=== PATIENT | male | born 1955 | race Caucasian/White ===

== ENCOUNTER 2021-10-24 08:54 | Emergency (ER) | payer MEDICARE, OTHER, SELFPAY ==
[2021-10-24] VITALS (11 sets, daily range): BP systolic 124–146; BP diastolic 66–77; PULSE 77–85; RESP 18–24; TEMP 35.8; O2SAT 93–96; BMI 34.4
--- NOTE | 2021-10-24 09:15 | ED_ITS ---
HPI - General Adult General Chief complaint: Fall Stated complaint: dizzy fell 3x this morning cant move Time Seen by Provider: 10/24/21 09:09 Source: patient Mode of arrival: Ambulatory Limitations: no limitations History of Present Illness HPI narrative: Patient is a 66-year-old male who came to the emergency department this morning for evaluation of an episode of dizziness and falling. Over the past 10 days he has not felt well. They recently have made some changes to his diabetic medication. He states that the new medications were not treating his blood sugars appropriately so he self decided to go back on his old medications. That was 3 days ago. He states that this morning he woke up to go use the restroom. When he stood up he felt very unsteady on his feet. He states that everything went black and he fell to the ground. Sustained no injuries from the fall. He states that it feels better when his eyes are closed. He does not completely describe a vertigo/room spinning sensation no ever feels like things are just shaking. No sinus congestion. No sore throat. No fullness in his ears. No palpitations. No shortness of breath. No chest pain. No abdominal pain. No nausea vomiting. No numbness or tingling in upper lower extremities. Related Data Home Medications Medication Instructions Recorded Confirmed aspirin 81 mg tablet,delayed 81 mg PO QDAY #0 05/12/16 release atorvastatin 40 mg tablet (Lipitor) 40 mg PO HS #0 05/12/16 losartan 100 mg tablet 100 mg PO QDAY #0 05/12/16 Previous Rx's Medication Instructions Recorded levofloxacin 750 mg tablet 750 mg PO DAILY 5 Days #5 tab 10/24/21 Allergies Allergy/AdvReac Type Severity Reaction Status Date / Time No Known Allergies Allergy Uncoded 09/21/17 12:36 Review of Systems Constitutional Constitutional: Denies fever(s) and Denies headache(s) Eyes Eyes: Denies change in vision ENT Ears, Nose, Mouth, and Throat: Denies headache(s) Cardiovascular Cardiovascular: Reports as per HPI and Reports system reviewed and no additional complaints, except as documented Respiratory Respiratory: Reports as per HPI and Reports system reviewed and no additional complaints, except as documented Gastrointestinal Gastrointestinal: Reports system reviewed and no additional complaints, except as documented Musculoskeletal Musculoskeletal: Reports system reviewed and no additional complaints, except as documented Integumentary/Breasts Skin/Breast: Reports system reviewed and no additional complaints, except as documented Neurologic Neurologic: Denies headache(s) Hematologic/Lymphatic On Anticoagulants: No Patient History Medical History Diabetes Social History marital status: lives independently: Yes Smoking Status: Unknown if ever smoked Exam Initial Vital Signs Initial Vital Signs: Vital Signs Temperature 96.4 F L 10/24/21 09:13 Pulse Rate 85 10/24/21 09:13 Respiratory Rate 18 10/24/21 09:13 Blood Pressure 133/75 10/24/21 09:13 Pulse Oximetry 94 10/24/21 09:13 Const General: cooperative, healthy appearing and comfortable HENMT Head: normal to inspection and normocephalic Resp Effort & Inspection: normal respiratory effort Auscultation: clear to auscultation bilaterally Cardio Rate: regular rate Rhythm: regular rhythm GI Inspection: normal to inspection Skin General: no rashes or lesions noted Neuro General: patient alert, patient awake, patient oriented x3 and moves all extremities Cranial Nerves: CN's II-XI intact bilaterally Cognition: normal cognition Speech: speech normal Gait: normal gait Sensory Exam: no sensory deficits noted Extrem General: normal to inspection and capillary refill normal Psych Appearance: grossly normal and well kempt Course Orders Ordered: ED Orders 10/24/21 09:09 EKG-12 Lead Stat 10/24/21 09:16 XR chest 1V Stat 10/24/21 09:20 Complete Blood Count AUTO DIFF Stat Comprehensive Metabolic Panel Stat Lipase Stat 10/24/21 10:43 COVID19 -Nasal RAPID/Pre-Proc Stat 10/24/21 11:24 Urine Culture Stat Urine Microscopic Stat Discontinued Medications Azithromycin (Azithromycin 250 Mg Tablet) 500 mg PO NOW ONE Stop: 10/24/21 10:17 Last Admin: 10/24/21 10:34 Dose: 500 mg Documented by: MAX Sodium Chloride (Normal Saline 0.9%) 1,000 mls @ 500 mls/hr IV BOLUS ONE Stop: 10/24/21 11:08 Last Infusion: 10/24/21 11:56 Dose: 0 mls/hr Documented by: Admin: 10/24/21 09:30 Dose: 500 mls/hr Documented by: MAX Meclizine HCl (Meclizine Hcl 12.5 Mg Tablet) 25 mg PO NOW ONE Stop: 10/24/21 10:17 Last Admin: 10/24/21 10:34 Dose: 25 mg Documented by: MAX Vital Signs Vital signs: Vital Signs - 8 hr 10/24/21 09:30 10/24/21 10:00 10/24/21 10:30 Pulse Rate 80 77 81 Respiratory Rate 20 21 23 Blood Pressure 146/74 H 134/66 135/68 Pulse Oximetry 94 94 93 10/24/21 11:00 10/24/21 11:30 10/24/21 12:00 Pulse Rate 82 80 79 Respiratory Rate 22 22 24 Blood Pressure 143/77 H 124/69 132/69 Pulse Oximetry 93 96 95 10/24/21 12:30 10/24/21 13:00 Pulse Rate 82 80 Respiratory Rate 24 22 Blood Pressure 136/75 135/71 Pulse Oximetry 95 96 Medical Decision Making Lab Data Lab results reviewed: Yes I reviewed the patient's lab results. Result diagrams: 10/24/21 09:20 10/24/21 09:20 Labs: Lab Results 10/24/21 10/24/21 10/24/21 Range/Units 09:20 09:20 10:43 WBC 20.2 H (4.5-11.0) X10^3/uL RBC 4.44 L (4.5-5.9) X10^6/uL Hgb 13.3 L (13.5-17.5) g/dL Hct 37.4 L (41-53) % MCV 84.1 (80-100) fL MCH 29.9 (26-34) PG MCHC 35.6 (30-36) % RDW 13.9 (11.6-14.8) % Plt Count 261 (150-400) X10^3/uL Neut % (Auto) Not Reportable Lymph % (Auto) Not Reportable [place] % (Auto) Not Reportable Eos % (Auto) Not Reportable Baso % (Auto) Not Reportable Lymph # (Auto) Not Reportable [place] # (Auto) Not Reportable Baso # (Auto) Not Reportable Total Counted 100 Seg Neutrophils % 79.0 H (38-70) % Band Neutrophils % 7.0 (3-7) % Lymphocytes % (Manual) 5.0 L (25-45) % Monocytes % (Manual) 9.0 (2-11) % Neutrophils # (Manual) 08008 H (9221-3627) /uL RBC Morphology Normal morphology Sodium 135 L (137-145) mmol/L Potassium 3.3 L (3.4-5.1) mmol/L Chloride 100 (98-107) mmol/L Carbon Dioxide 27 (22-32) mmol/L BUN 24 H (9-20) mg/dL Creatinine 1.17 (0.66-1.25) mg/dL Estimated GFR > 60 (>60) mL/min BUN/Creatinine Ratio 20.5 (6-22) Glucose 398 H (80-110) mg/dL Calcium 8.4 (8.4-10.2) mg/dL Total Bilirubin 1.6 H (0.2-1.3) mg/dL AST 236 H (17-59) IU/L ALT 397 H (<50) IU/L Alkaline Phosphatase 129 H (38-126) U/L Total Protein 7.8 (6.3-8.2) g/dL Albumin 3.8 (3.5-5.0) g/dL Globulin 4.0 (1.7-4.1) g/dL Albumin/Globulin Ratio 1.0 (1.0-2.8) Lipase 90 (23-300) U/L Urine RBC (0-5/HPF) Urine WBC (0-5/HPF) Urine Bacteria (None) Ur Culture Indicated? SARS-CoV-2 (PCR) Negative (Negative) 10/24/21 Range/Units 11:24 WBC (4.5-11.0) X10^3/uL RBC (4.5-5.9) X10^6/uL Hgb (13.5-17.5) g/dL Hct (41-53) % MCV (80-100) fL MCH (26-34) PG MCHC (30-36) % RDW (11.6-14.8) % Plt Count (150-400) X10^3/uL Neut % (Auto) Lymph % (Auto) [place] % (Auto) Eos % (Auto) Baso % (Auto) Lymph # (Auto) [place] # (Auto) Baso # (Auto) Total Counted Seg Neutrophils % (38-70) % Band Neutrophils % (3-7) % Lymphocytes % (Manual) (25-45) % Monocytes % (Manual) (2-11) % Neutrophils # (Manual) (7088-4495) /uL RBC Morphology Sodium (137-145) mmol/L Potassium (3.4-5.1) mmol/L Chloride (98-107) mmol/L Carbon Dioxide (22-32) mmol/L BUN (9-20) mg/dL Creatinine (0.66-1.25) mg/dL Estimated GFR (>60) mL/min BUN/Creatinine Ratio (6-22) Glucose (80-110) mg/dL Calcium (8.4-10.2) mg/dL Total Bilirubin (0.2-1.3) mg/dL AST (17-59) IU/L ALT (<50) IU/L Alkaline Phosphatase (38-126) U/L Total Protein (6.3-8.2) g/dL Albumin (3.5-5.0) g/dL Globulin (1.7-4.1) g/dL Albumin/Globulin Ratio (1.0-2.8) Lipase (23-300) U/L Urine RBC 0-1/hpf (0-5/HPF) Urine WBC 30-100/hpf H (0-5/HPF) Urine Bacteria Many (>30) H (None) Ur Culture Indicated? Culture not indicate SARS-CoV-2 (PCR) (Negative) Urine Dip Bedside Urine Glucose 1000 mg/dl Bedside Urine Bilirubin - Negative Bedside Urine Ketone - Negative Urine Specific [place] 1.015 Bedside Urine Occult Blood +++ Bedside Urine pH 6.0 Bedside Urine Protein + 30 Bedside Urine Urobilinogen - Negative Bedside Urine Nitrite + Positive Bedside Urine Leukocytes - Negative Esterase Point of care testing: Urine Dip Bedside Urine Glucose 1000 mg/dl Bedside Urine Bilirubin - Negative Bedside Urine Ketone - Negative Urine Specific [place] 1.015 Bedside Urine Occult Blood +++ Bedside Urine pH 6.0 Bedside Urine Protein + 30 Bedside Urine Urobilinogen - Negative Bedside Urine Nitrite + Positive Bedside Urine Leukocytes - Negative Esterase Imaging Data Chest x-ray: Radiologist's Impression: [address] [id number] XRay Report Signed Patient: Dean Jimenez MR#: [id number] : 1955 Acct:[id number] Age/Sex: 66 / M Date of Service: 10/24/21 Loc: ED Accession Number: [id number] ?? Procedure: XR chest 1V Ordering Provider: Khanh Coto D.O. PROCEDURE:? XR CHEST 1V ? INDICATIONS:? wheezing ? TECHNIQUE:? One view of the chest was acquired.? ? COMPARISON:? None. ? FINDINGS:? ? Surgical changes and devices:? None.? ? Lungs and pleura:? Mild patchy bilateral perihilar opacity and peribronchial cuffing.? No pleural effusions or pneumothorax.? ? Mediastinum:? Mediastinal contours appear normal.? Heart size is normal.? ? Bones and chest wall:? No suspicious bony lesions.? Overlying soft tissues appear unremarkable.? ? IMPRESSION:? Mild bronchopneumonia.? ? ? Dictated by: Dhaval Ramsey M.D. on 10/24/2021 at 9:43 ? ? Approved by: Dhaval Ramsey M.D. on 10/24/2021 at 9:43?? ECG Data Attestation: I personally reviewed and interpreted this ECG as follows: Interpretation: Sinus rhythm Ventricular rate 83 QRS 1-2 milliseconds QTC [address] T wave changes MDM Narrative Medical decision making narrative: Patient is nontoxic appearing. His vital signs are unremarkable. He is hyperglycemic but not in DKA. Initially chest x-ray results in what appears to be pneumonia. This does fit his presentation of his coarse breath sounds and productive cough. He was given azithromycin. His urine then resulted is being nitrite positive with other findings consistent with a urinary tract infection. He has had urinary tract infections in the past. He also has a leukocytosis. I suspect that his issues with the elevated blood sugar could be because of his current infections which appear to be both respiratory and urologic. He also states that his dizziness is somewhat better after the meclizine. Plain will be is to switch him from the azithromycin to the Levaquin as that should treat both the pneumonia and also a urinary tract infection. Informed him that he should not make any changes to his diabetic medications until his infections are appropriately treated as this may resolve itself during this time. He will contact his primary doctor for follow-up. He was given strict return precautions. Patient does not currently require admission to the hospital. He expressed understanding and agreement. Discharge Plan Departure Patient Disposition: Home Clinical Impression: Urinary tract infection, Pneumonia, Lightheadedness, Hyperglycemia Instructions: Pneumonia-Adult, DI for Urinary Tract Infection (UTI), DI for Dizziness-Nonvertigo Activity Restrictions/Additional Instructions: Continue to take all of your medications as directed. Your going to start you on antibiotic that should take care both your pneumonia and the urinary tract infection. Will contact your primary doctor for a follow-up. Return to the emergency department for any new or worsening symptoms. Prescriptions: New levofloxacin 750 mg tablet 750 mg PO DAILY 5 Days Qty: 5 0RF No Action atorvastatin [Lipitor] 40 MG tablet 40 mg PO HS Qty: 0 0RF losartan 100 MG tablet 100 mg PO QDAY Qty: 0 0RF aspirin 81 MG tablet,delayed release (DR/EC) 81 mg PO QDAY Qty: 0 0RF Referrals: Meaghan Ramey MD [Primary Care Provider] -
--- NOTE | 2021-10-24 09:16 | DI.RAD.S_ITS ---
PROCEDURE: XR CHEST 1V INDICATIONS: wheezing TECHNIQUE: One view of the chest was acquired. COMPARISON: None. FINDINGS: Surgical changes and devices: None. Lungs and pleura: Mild patchy bilateral perihilar opacity and peribronchial cuffing. No pleural effusions or pneumothorax. Mediastinum: Mediastinal contours appear normal. Heart size is normal. Bones and chest wall: No suspicious bony lesions. Overlying soft tissues appear unremarkable. IMPRESSION: Mild bronchopneumonia. Dictated by: Dhaval Ramsey M.D. on 10/24/2021 at 9:43 Approved by: Dhaval Ramsey M.D. on 10/24/2021 at 9:43
[2021-10-24] MEDS: SODIUM CHLORIDE 0.9% 1,000 ML 500 ML IV (09:30)
[2021-10-24 09:33] LABS: Add Manual Diff / Slide Review YES; Hematocrit 37.4 % (41-53); Hemoglobin 13.3 g/dL (13.5-17.5); Mean Corpuscular HGB Conc 35.6 % (30-36); Mean Corpuscular Hemoglobin 29.9 PG (26-34); Mean Corpuscular Volume 84.1 fL (80-100); Platelet Count 261 X10^3/uL (150-400); Red Blood Cell Count 4.44 X10^6/uL (4.5-5.9); Red Cell Distribution Width 13.9 % (11.6-14.8); White Blood Cell Count 20.2 X10^3/uL (4.5-11.0)
[2021-10-24 09:38] LABS: Alanine Aminotransferase 397 IU/L (<50); Albumin 3.8 g/dL (3.5-5.0); Aspartate Aminotransferase 236 IU/L (17-59); BUN Creatinine Ratio 20.5 (6-22); Bilirubin Total 1.6 mg/dL (0.2-1.3); Blood Urea Nitrogen 24 mg/dL (9-20); Calcium 8.4 mg/dL (8.4-10.2); Chloride 100 mmol/L (98-107); Estimated Glomerular Filt Rate > 60 mL/min (>60); Glucose 398 mg/dL (80-110); HEMOLYSIS 30 (0-50); Lipase 90 U/L (23-300); Potassium 3.3 mmol/L (3.4-5.1); Sodium 135 mmol/L (137-145); Total Protein 7.8 g/dL (6.3-8.2)
[2021-10-24 09:44] LABS: Carbon Dioxide 27 mmol/L (22-32)
[2021-10-24 09:57] LABS: Alkaline Phosphatase 129 U/L (38-126)
[2021-10-24 10:02] LABS: Neutrophils Absolute Manual 17372 /uL (3000-5900); RBC Morphology Normal Morphology; Total Cells Counted 100
[2021-10-24] MEDS: AZITHROMYCIN 250 MG TABLET 500 MG PO (10:34)
[2021-10-24] MEDS: MECLIZINE HCL 12.5 MG TABLET 25 MG PO (10:34)
[2021-10-24 11:07] LABS: COVID19 -Nasal RAPID Negative (Negative)
[2021-10-24 11:36] LABS: RBC Urine 0-1/HPF (0-5/HPF); WBC Urine 30-100/HPF (0-5/HPF)
[2021-10-24 11:37] LABS: Bacteria Urine Many (>30)
== END 2021-10-24 13:18 | disposition home or self-care (01) ==
PROVIDERS: Emergency Provider Emergency Medicine; Family Provider Internal Medicine; PCP Internal Medicine
DX: N39.0 Urinary tract infection, site not specified (principal); J18.9 Pneumonia, unspecified organism; R42 Dizziness and giddiness; E11.65 Type 2 diabetes mellitus with hyperglycemia; R29.6 Repeated falls; Z20.822 Contact with and (suspected) exposure to COVID-19
CPT/HCPCS: 36415; 71045; 80053; 81003; 81015; 83690; 85007; 85025; 87077; 87086; 87186; 87635; 93005; 99284; C9803

== ENCOUNTER → 2022-08-27 07:26 | Outpatient (CLI) | payer MEDICARE, OTHER, SELFPAY ==
--- NOTE | 2022-08-27 | DI.ECHO.S_ITS ---
[facility] +---------+ Hospital +---------+ : : [address] : : [place], [place] : : : : [id number] : : : : Phone: [phone] Echocardiogram Report + + :Name: JEFERSON LLANES Study Date: 08/27/2022 Height: 70 in : :[facility] ReadingLocation: Weight: 230 lb : : Gender: Male BSA: 2.2 m2 : :: 1955 Age: 67 yrs BP: 144/78 mmHg: :Reason For Study: ABNORMAL FINDINGS HR: 85 : :Ordering Physician: NILA, : :LILIANE Performed By: DOROTHY CHRISTINA : :Referring: LILIANE DALE : + + Interpretation Summary 1) Normal left ventricular size, and systolic function (EF 55-60%). 2) Normal right ventricular size and function. 3) No significant valvular abnormalities. 4) No prior Echo available for comparison. Procedure: A two-dimensional transthoracic echocardiogram with color flow and Doppler was performed. The study quality was technically difficult. There is no prior echocardiogram noted for this patient. The patient was in normal sinus rhythm during the exam. Left Ventricle: The left ventricle is normal in size. The ejection fraction is estimated to be 55-60%. Left ventricular systolic function is normal. There are no obvious focal wall motion abnormalities noted but poor endocardial definition reduces the sensitivity for the detection of such. Right Ventricle: The right ventricle is normal size. The right ventricular systolic function is normal. Atria: Both atria are normal in size. There is no Doppler evidence for an interatrial shunt. Mitral Valve: The mitral valve leaflets appear moderately thickened, but open well. There is trace mitral regurgitation. Aortic Valve: The aortic valve is trileaflet. There is discrete nodular thickening of the left coronary cusp. There is no aortic valve stenosis. No aortic regurgitation is present. Tricuspid Valve: The tricuspid valve is normal in structure and function. Pulmonary artery pressures cannot be estimated because of the lack of a measurable TR jet velocity. Pulmonic Valve: The pulmonic valve is normal in structure and function. There is no pulmonic valvular regurgitation. Great Vessels: The aortic root is normal size. The ascending aorta is at the upper limits of normal in size. The inferior vena cava was not well visualized. Pericardium/ Pleura There is no pericardial effusion. There is no pleural effusion. MMode/2D Measurements & Calculations LVOT diam: 2.0 cm LA A2 area: 14.6 cm2 Ao root diam: 3.1 cm LA A4 area: 13.9 cm2 asc Aorta Diam: 3.8 cm LA length (vol): 4.8 cm LA vol: 35.9 ml LA vol index: 16.2 ml/m2 RA long axis: 3.7 cm LVLs ap4: 5.5 cm LVLd ap2: 7.6 cm TAPSE_phl: 2.2 cm LVLs ap2: 6.3 cm Doppler Measurements & Calculations Ao V2 max: 159.0 cm/sec LVOT Max Sreedhar: 119.0 cm/sec Ao V2 mean: 117.0 cm/sec LV V1 max P.7 mmHg Ao max P.1 mmHg LV V1 VTI: 20.6 cm Ao mean P.0 mmHg RAUL(I,D): 2.6 cm2 Ao V2 VTI: 24.9 cm RAUL(V,D): 2.4 cm2 sev ratio: 0.83 RAUL indexed to BSA (cm^2/m^2): 1.2 MV E max sreedhar: 65.1 cm/sec PA V2 max: 131.0 cm/sec MV A max sreedhar: 81.0 cm/sec PA V2 mean: 99.8 cm/sec MV E/A: 0.80 PA mean P.0 mmHg Med Peak E' Sreedhar: 9.3 cm/sec PA pr(Accel): 37.6 mmHg E/E' med: 7.0 Lat Peak E' Sreedhar: 10.1 cm/sec E/E' lat: 6.4 E/e' average: 6.7 MV dec time: 0.21 sec SV(LVOT): 64.7 ml AV VR_phl: 0.75 RAUL(VTI)/BSA_phl: 1.2 MV P1/2t-pr_phl: 60.0 msec Reading Physician:12:39 PM
--- NOTE | 2022-08-27 | DI.NM.S_ITS ---
PROCEDURE: NM JATIN PERF SPECT REST & STR Rest and exercise myocardial perfusion SPECT with gated imaging and ejection fraction RADIOPHARMACEUTICAL: 11.5 mCi Tc-99m sestamibi IV at rest and 26.7 mCi Tc-99m sestamibi IV at peak exercise. A [id number] was performed. INDICATIONS: Abnormal findings on diagnostic imaging of heart and coronar TECHNIQUE: Radiopharmaceutical was injected at peak stress test, and also at rest. SPECT images were obtained. SPECT myocardial perfusion images were displayed in short axis, horizontal long axis, and vertical long axis views. Gated images were reviewed using [employer] software. COMPARISON: None. CARDIAC STRESS: A standard [place] treadmill exercise tolerance test was performed by the patient under the supervision of an attending staff. The patient exercised for 7 minutes and 13 seconds; 9.0 METS; functional aerobic impairment (RAJ) is +9%. Hemodynamic data: There is normal blood pressure and heart rate response to exercise stress. Maximum blood pressure 183/63. Patient achieved 97% of maximum predicted heart rate at peak exercise. Symptoms: Patient denied chest pain during exercise. EKG: Rest EKG sinus rhythm, nonspecific IVCD. Stress ECG sinus tachycardia, no ST segment changes or arrhythmias. FINDINGS: Raw data: There is good myocardial labeling by radiotracer. No significant motion artifacts. Jzov-za-azjpg ratio is 0.19 (normal is less than 0.38 for sestamibi tracer, and less than 0.50 for thallium tracer). Left ventricle function: Gated images demonstrate normal left ventricle wall thickening. No segmental wall motion abnormality. No transient ischemic dilation; TID is 0.71 (normal less than 1.3). The left ventricle resting end-diastolic volume is 121 mL. Left ventricle stress ejection fraction is 74%; normal values are above 45%. Myocardial perfusion: There is a small size, mild intensity fixed distal septal wall defect that nearly resolves in prone imaging. No reversible perfusion defects. IMPRESSION: Likely low risk study. The small size, mild intensity fixed distal septal wall defect shows near complete resolution in prone imaging making this most consistent with attenuation artifact. Normal LV function and wall motion. No evidence of reversible defects on SPECT imaging or ST segment changes on exercise ECG. Normal hemodynamic response to exercise. Slightly reduced exercise capacity. Dictated by: Jovana Rowell D.O. on 08/27/2022 at 15:58 Approved by: Jovana Rowell D.O. on 08/27/2022 at 16:02
== END ==
PROVIDERS: Family Provider Internal Medicine; PCP Nurse Practitioner Family; Referring Provider Internal Medicine Cardiovascular Disease; Visit Provider Internal Medicine Cardiovascular Disease
DX: R93.1 Abnormal findings on diagnostic imaging of heart and coronary circulation (principal)
CPT/HCPCS: 78452; 93017; 93306; A9502

== ENCOUNTER → 2024-02-15 07:19 | Outpatient (CLI) | payer MEDICARE, OTHER, SELFPAY ==
[2024-02-15 08:51] LABS: Add Manual Diff / Slide Review NO; Basophils Absolute Auto 0 /uL (0-100); Basophils Percent Auto 0.6 % (0-2); Eosinophils Absolute Auto 100 /uL (0-450); Eosinophils Percent Auto 1.6 % (2-4); Hematocrit 42.9 % (41-53); Hemoglobin 15.3 g/dL (13.5-17.5); Lymphocytes Absolute Auto 2200 /uL (1100-4500); Lymphocytes Percent Auto 26.1 % (25-40); Mean Corpuscular HGB Conc 35.6 % (30-36); Mean Corpuscular Hemoglobin 30.4 PG (26-34); Mean Corpuscular Volume 85.3 fL (80-100); Monocytes Absolute Auto 700 /uL (0-900); Monocytes Percent Auto 8.6 % (3-14); Neutrophils Absolute Auto 5400 /uL (1500-7000); Neutrophils Percent Auto 63.1 % (50-75); Platelet Count 269 X10^3/uL (150-400); Red Blood Cell Count 5.02 X10^6/uL (4.5-5.9); Red Cell Distribution Width 13.8 % (11.6-14.8); White Blood Cell Count 8.5 X10^3/uL (4.5-11.0)
[2024-02-15 09:23] LABS: Creatinine Urine Random 171.24 mg/dL
[2024-02-15 09:27] LABS: Hemoglobin A1C% w Est Avg Glu 6.3 % (4.0-6.0)
[2024-02-15 09:28] LABS: Microalbumin Urine Random 0.9 mg/dL (0-1.6)
[2024-02-15 09:30] LABS: Alanine Aminotransferase 21 IU/L (<50); Albumin 4.6 g/dL (3.5-5.0); Albumin Globulin Ratio 1.8 (1.0-2.8); Alkaline Phosphatase 76 U/L (38-126); Aspartate Aminotransferase 21 IU/L (17-59); Bilirubin Total 0.8 mg/dL (0.2-1.3); Blood Urea Nitrogen 20 mg/dL (9-20); Calcium 9.7 mg/dL (8.4-10.2); Carbon Dioxide 25 mmol/L (22-32); Chloride 103 mmol/L (98-107); Cholesterol 138 mg/dL (140-199); Estimated Glomerular Filt Rate > 60 mL/min (>60); Globulin 2.6 g/dL (1.7-4.1); Glucose 154 mg/dL (80-110); HDL Cholesterol 35 mg/dL (40-60); HEMOLYSIS 16 (0-50); LDL Cholesterol Calculated 59 mg/dL (<100); Potassium 4.3 mmol/L (3.4-5.1); Sodium 138 mmol/L (137-145); Total Protein 7.2 g/dL (6.3-8.2); Triglycerides 222 mg/dL (35-150)
[2024-02-15 09:58] LABS: Prostate Specific Antigen Scrn 1.03 ng/mL (0.1-4.0)
[2024-02-16 03:36] LABS: Apolipoprotein B 75 mg/dL (<90)
== END ==
PROVIDERS: Family Provider Internal Medicine; PCP Family Medicine; Referring Provider Family Medicine; Visit Provider Family Medicine
DX: I47.10 Supraventricular tachycardia, unspecified (principal); E11.9 Type 2 diabetes mellitus without complications; Z12.5 Encounter for screening for malignant neoplasm of prostate; E78.5 Hyperlipidemia, unspecified; I10 Essential (primary) hypertension
CPT/HCPCS: 36415; 80053; 80061; 82043; 82172; 82570; 83036; 84443; 85025; G0103

== ENCOUNTER 2024-03-08 13:08 | Emergency (ER) | payer MEDICARE, OTHER, SELFPAY ==
[2024-03-08] VITALS (11 sets, daily range): BP systolic 132–156; BP diastolic 62–81; PULSE 93–112; RESP 12–22; TEMP 37.2; O2SAT 95–98; BMI 31.1
[2024-03-08 14:38] LABS: Appearance Urine UA CLEAR; Bilirubin Urine UA NEGATIVE (NEGATIVE); Color Urine UA YELLOW; Glucose Urine UA 3+ g/dL (Negative); Ketones Urine UA TRACE (NEGATIVE); Leukocyte Esterase Urine UA NEGATIVE (NEGATIVE); Nitrite Urine UA NEGATIVE (Negative); Occult Blood Urine UA TRACE-INTACT (Negative); Protein Urine UA NEGATIVE (Negative); Specific Gravity Urine UA 1.025 (1.000-1.035); Urobilinogen Urine UA 0.2 E.U./dL (0.2); pH Urine UA 5.5 (4.5-8.0)
[2024-03-08 14:54] LABS: Bacteria Urine Occasional (0-1); Culture Indicated Urine Specimen Cultured; RBC Urine None Seen (0-5/HPF); Squamous Epithelial Cell Urine 0-1 /HPF (0-5/HPF); Urine Volume 10mL (spun); WBC Urine 5-10/HPF (0-5/HPF)
--- NOTE | 2024-03-08 14:58 | ED.MALEGU ---
HPI - Male Genitourinary General Chief complaint: Urogenital-Male Stated complaint: urinary issues Time Seen by Provider: 03/08/24 14:18 Source: patient Mode of arrival: Ambulatory History of Present Illness HPI Narrative: Patient is a 69-year-old male history of type 2 diabetes presenting today with frequent urination. He reports that he was up multiple times last night. He reports that this morning he had abdominal pain and vomited 1 time. He reports he still feels mildly nauseous but no more vomiting no more abdominal pain he denies any back pain. He has been mildly chilled but no fever. No chest pain cough or shortness of breath. He reports that he had a UTI awhile ago and this feels similar. Urine culture for 2021 shows E coli pansensitive Related Data Home Medications Medication Instructions Recorded Confirmed aspirin 81 mg tablet,delayed 81 mg PO QDAY ##0 05/12/16 02/09/24 release losartan 100 mg tablet 100 mg PO QDAY ##0 05/12/16 02/09/24 diltiazem HCl 180 mg capsule,24 180 mg PO DAILY 02/09/24 02/09/24 hr,extended release hydrochlorothiazide 25 mg tablet 25 mg PO DAILY 02/09/24 02/09/24 metformin 500 mg tablet 1,000 mg PO BID 02/09/24 02/09/24 pantoprazole 20 mg tablet,delayed 20 mg PO DAILY 02/09/24 02/09/24 release sitagliptin phosphate 50 mg tablet 50 mg PO DAILY 02/09/24 02/09/24 (Januvia) Previous Rx's Medication Instructions Recorded dulaglutide 4.5 mg/0.5 mL 4.5 mg (0.5 mL) SUBCUT QWEEK #2 mL 02/09/24 subcutaneous pen injector (Trulicity) atorvastatin 40 mg tablet (Lipitor) 40 mg PO HS #90 tabs 02/22/24 cefdinir 300 mg capsule 300 mg PO Q12H #14 caps 03/08/24 Allergies Allergy/AdvReac Type Severity Reaction Status Date / Time empagliflozin AdvReac Unknown frequent Verified 03/08/24 13:16 [From Jardiance] urination house dust AdvReac Unknown Verified 03/08/24 13:16 pollen extracts AdvReac Unknown Verified 03/08/24 13:16 tramadol AdvReac Unknown rectal Verified 03/08/24 13:16 bleeding No Known Allergies Allergy Uncoded 02/09/24 13:09 Patient History Medical History (Updated 03/08/24 @ 18:27 by Marium Schulz DO) SVT (supraventricular tachycardia) Hyperlipidemia Hypertension Diabetes Social History marital status: lives independently: Yes Smoking Status: Never smoker Smoking Status: Never smoker alcohol intake frequency: other Substance Use Type: does not use Exam Initial Vital Signs Initial Vital Signs: Vital Signs Temperature 99.0 F 03/08/24 13:09 Pulse Rate 112 H 03/08/24 13:09 Respiratory Rate 15 03/08/24 13:09 Blood Pressure 156/81 H 03/08/24 13:09 Pulse Oximetry 98 03/08/24 13:09 Oxygen Delivery Method Room Air 03/08/24 13:09 GENERAL: Well-appearing 69-year-old HEENT: Head atraumatic,EOMI, pupils reactive, face symmetric, moist mucous membranes CARDIOVASCULAR: Regular rate and rhythm without murmurs, rubs or gallops. RESPIRATORY: Breath sounds equal bilaterally, no wheezes rales or rhonchi. ABDOMEN: Soft, nontender. Normoactive bowel sounds all 4 quadrants. No guarding or rebound. : No CVA tenderness EXTREMITIES: Normal range of motion, no clubbing or edema. Neurovascularly intact NEUROLOGICAL: Alert and oriented x4.Normal gait and speech. SKIN: Warm, dry, no laceration, no petechiae, no rashes or lesions. Course Orders Ordered: Discontinued Medications Sodium Chloride (Normal Saline 0.9%) 1,000 mls @ 1,000 mls/hr IV BOLUS ONE Stop: 03/08/24 16:37 Last Infusion: 03/08/24 16:51 Dose: Infused Documented By: Admin: 03/08/24 15:56 Dose: 1,000 mls/hr Documented By: DARRIAN Ceftriaxone Sodium 1,000 mg/ (Sodium Chloride) 100 mls @ 200 mls/hr IV NOW ONE Stop: 03/08/24 15:39 Last Infusion: 03/08/24 17:00 Dose: Infused Documented By: Admin: 03/08/24 16:24 Dose: 200 mls/hr Documented By: DARRIAN Sodium Chloride (Normal Saline 0.9%) 1,000 mls @ 1,000 mls/hr IV BOLUS ONE Stop: 03/08/24 17:16 Last Infusion: 03/08/24 18:49 Dose: Infused Documented By: Admin: 03/08/24 16:32 Dose: 1,000 mls/hr Documented By: DARRIAN Vital Signs Vital signs: Vital Signs - 8 hr 03/08/24 13:09 03/08/24 13:15 Temperature 99.0 F Pulse Rate 112 H 108 H Respiratory Rate 15 12 Blood Pressure 156/81 H Pulse Oximetry 98 98 Oxygen Delivery Method Room Air MDM - Male Genitourinary Lab Data 03/08/24 15:24 03/08/24 15:24 Labs: Lab Results 03/08/24 03/08/24 03/08/24 Range/Units 13: 15:24 16:10 WBC 19.2 H (4.5-11.0) X10^3/uL RBC 5.09 (4.5-5.9) X10^6/uL Hgb 15.4 (13.5-17.5) g/dL Hct 44.2 (41-53) % MCV 86.8 (80-100) fL MCH 30.2 (26-34) PG MCHC 34.8 (30-36) % RDW 13.7 (11.6-14.8) % Plt Count 246 (150-400) X10^3/uL Neut % (Auto) 83.5 H (50-75) % Lymph % (Auto) 8.3 L (25-40) % Edwards % (Auto) 7.5 (3-14) % Eos % (Auto) 0.1 L (2-4) % Baso % (Auto) 0.6 (0-2) % Neut # (Auto) 57685 H (1258-2161) /uL Lymph # (Auto) 1600 (2596-6986) /uL Edwards # (Auto) 1400 H (0-900) /uL Eos # (Auto) 0 (0-450) /uL Baso # (Auto) 100 (0-100) /uL Sodium 135 L (137-145) mmol/L Potassium 3.6 (3.4-5.1) mmol/L Chloride 99 (98-107) mmol/L Carbon Dioxide 26 (22-32) mmol/L BUN 17 (9-20) mg/dL Creatinine 1.00 (0.66-1.25) mg/dL Estimated GFR > 60 (>60) mL/min BUN/Creatinine Ratio 17.0 (6-22) Glucose 191 H (80-110) mg/dL Lactate 2.6 H (0.7-2.1) mmol/L Calcium 9.4 (8.4-10.2) mg/dL Total Bilirubin 1.1 (0.2-1.3) mg/dL AST 20 (17-59) IU/L ALT 26 (<50) IU/L Alkaline Phosphatase 82 (38-126) U/L Total Protein 8.0 (6.3-8.2) g/dL Albumin 4.5 (3.5-5.0) g/dL Globulin 3.5 (1.7-4.1) g/dL Albumin/Globulin Ratio 1.3 (1.0-2.8) Procalcitonin 0.116 (<0.5) ng/mL Urine Color Yellow Urine Appearance Clear Urine pH 5.5 (4.5-8.0) Ur Specific [place] 1.025 (1.000-1.035) Urine Protein Negative (Negative) Urine Glucose (UA) 3+ H (Negative) g/dL Urine Ketones Trace H (NEGATIVE) Urine Occult Blood Trace-intact (Negative) Urine Nitrate Negative (Negative) Urine Bilirubin Negative (NEGATIVE) Urine Urobilinogen 0.2 (0.2) E.U./dL Ur Leukocyte Esterase Negative (NEGATIVE) Urine RBC None seen (0-5/HPF) Urine WBC 5-10/hpf H (0-5/HPF) Ur Squamous Epith Cells 0-1 /hpf (0-5/HPF) Urine Bacteria Occasional (0-1) (None) Ur Culture Indicated? Specimen cultured Vol Urine Centrifuged 10ml (spun) 03/08/24 Range/Units 17:54 WBC (4.5-11.0) X10^3/uL RBC (4.5-5.9) X10^6/uL Hgb (13.5-17.5) g/dL Hct (41-53) % MCV (80-100) fL MCH (26-34) PG MCHC (30-36) % RDW (11.6-14.8) % Plt Count (150-400) X10^3/uL Neut % (Auto) (50-75) % Lymph % (Auto) (25-40) % Edwards % (Auto) (3-14) % Eos % (Auto) (2-4) % Baso % (Auto) (0-2) % Neut # (Auto) (3113-7931) /uL Lymph # (Auto) (1527-0949) /uL Edwards # (Auto) (0-900) /uL Eos # (Auto) (0-450) /uL Baso # (Auto) (0-100) /uL Sodium (137-145) mmol/L Potassium (3.4-5.1) mmol/L Chloride (98-107) mmol/L Carbon Dioxide (22-32) mmol/L BUN (9-20) mg/dL Creatinine (0.66-1.25) mg/dL Estimated GFR (>60) mL/min BUN/Creatinine Ratio (6-22) Glucose (80-110) mg/dL Lactate 2.0 (0.7-2.1) mmol/L Calcium (8.4-10.2) mg/dL Total Bilirubin (0.2-1.3) mg/dL AST (17-59) IU/L ALT (<50) IU/L Alkaline Phosphatase (38-126) U/L Total Protein (6.3-8.2) g/dL Albumin (3.5-5.0) g/dL Globulin (1.7-4.1) g/dL Albumin/Globulin Ratio (1.0-2.8) Procalcitonin (<0.5) ng/mL Urine Color Urine Appearance Urine pH (4.5-8.0) Ur Specific [place] (1.000-1.035) Urine Protein (Negative) Urine Glucose (UA) (Negative) g/dL Urine Ketones (NEGATIVE) Urine Occult Blood (Negative) Urine Nitrate (Negative) Urine Bilirubin (NEGATIVE) Urine Urobilinogen (0.2) E.U./dL Ur Leukocyte Esterase (NEGATIVE) Urine RBC (0-5/HPF) Urine WBC (0-5/HPF) Ur Squamous Epith Cells (0-5/HPF) Urine Bacteria (None) Ur Culture Indicated? Vol Urine Centrifuged Point of Care Testing Glucose POC 213 Urine Dip Bedside Urine Glucose 1000 mg/dl Bedside Urine Bilirubin - Negative Bedside Urine Ketone +/- 5 Urine Specific [place] 1.020 Bedside Urine Occult Blood - Negative Bedside Urine pH 6.0 Bedside Urine Protein - Negative Bedside Urine Urobilinogen - Negative Bedside Urine Nitrite - Negative Bedside Urine Leukocytes - Negative Esterase MDM Narrative Medical decision making narrative: Patient is 69-year-old male presents today with frequent urination. He is vomited once. He has a POC glucose of 200. He overall appears well and nontoxic but would have an atypical complicated UTI due to sex, age and diabetes. Blood work does show significant leukocytosis of 19 with a lactic acid of 2.6-->2.0 procalcitonin 0.116 renal function is stable creatinine of 1.0, venous pH 7.49 Urinalysis is positive for leukocytes but negative for nitrates He received 2 L of IV fluids and Rocephin Patient has no evidence of DKA. He does have significant leukocytosis and elevated lactic acid concerning for infection. Vitals are stable although he was mildly tachycardic heart rate 112 low-grade temp of 99? and normal blood pressure. He does not have evidence of severe sepsis. Blood cultures are pending. Patient again appears well he has no back pain or abdominal pain. At this time I do not think he needs imaging. He was treated with fluids and antibiotics. His heart rate improved lactic acid improved. He is given IV Rocephin here and sent home with cefdinir. Discharge Plan Departure Patient Disposition: Home Clinical Impression: Acute UTI, Diabetes Instructions: DI for Urinary Tract Infection (UTI) Activity Restrictions/Additional Instructions: *You have been diagnosed with UTI *What to do: At this time please stay hydrated. *Continue to take medications as directed Cefdinir 300 mg twice a day for 7 days *Follow up with your primary care provider in 2-3 days or call [phone] *Return to ER if you should have increasing nausea vomiting fever chills back pain or any new, worsening or concerning symptoms Prescriptions: New cefdinir 300 mg capsule 300 mg PO Q12H Qty: 14 0RF No Action losartan 100 MG tablet 100 mg PO QDAY Qty: 0 aspirin 81 MG tablet,delayed release (DR/EC) 81 mg PO QDAY Qty: 0 atorvastatin [Lipitor] 40 mg tablet 40 mg PO HS Qty: 90 0RF Januvia 50 mg tablet 50 mg PO DAILY diltiazem HCl 180 mg capsule,extended release 24 hr 180 mg PO DAILY metformin 500 mg tablet 1,000 mg PO BID hydrochlorothiazide 25 mg tablet 25 mg PO DAILY pantoprazole 20 mg tablet,delayed release (DR/EC) 20 mg PO DAILY Trulicity 4.5 mg/0.5 mL pen injector 4.5 mg SUBCUT QWEEK Qty: 2 3RF Referrals: Randolph Clayton MD [Primary Care Provider] - Stand Alone Forms: Patient Portal/API
[2024-03-08 15:36] LABS: Add Manual Diff / Slide Review NO; Basophils Absolute Auto 100 /uL (0-100); Basophils Percent Auto 0.6 % (0-2); Eosinophils Absolute Auto 0 /uL (0-450); Eosinophils Percent Auto 0.1 % (2-4); Hematocrit 44.2 % (41-53); Hemoglobin 15.4 g/dL (13.5-17.5); Lymphocytes Absolute Auto 1600 /uL (1100-4500); Lymphocytes Percent Auto 8.3 % (25-40); Mean Corpuscular HGB Conc 34.8 % (30-36); Mean Corpuscular Hemoglobin 30.2 PG (26-34); Mean Corpuscular Volume 86.8 fL (80-100); Monocytes Absolute Auto 1400 /uL (0-900); Monocytes Percent Auto 7.5 % (3-14); Neutrophils Absolute Auto 16000 /uL (1500-7000); Neutrophils Percent Auto 83.5 % (50-75); Platelet Count 246 X10^3/uL (150-400); Red Blood Cell Count 5.09 X10^6/uL (4.5-5.9); Red Cell Distribution Width 13.7 % (11.6-14.8); White Blood Cell Count 19.2 X10^3/uL (4.5-11.0)
[2024-03-08 15:50] LABS: Alanine Aminotransferase 26 IU/L (<50); Albumin 4.5 g/dL (3.5-5.0); Albumin Globulin Ratio 1.3 (1.0-2.8); Alkaline Phosphatase 82 U/L (38-126); Aspartate Aminotransferase 20 IU/L (17-59); Bilirubin Total 1.1 mg/dL (0.2-1.3); Blood Urea Nitrogen 17 mg/dL (9-20); Calcium 9.4 mg/dL (8.4-10.2); Carbon Dioxide 26 mmol/L (22-32); Chloride 99 mmol/L (98-107); Estimated Glomerular Filt Rate > 60 mL/min (>60); Globulin 3.5 g/dL (1.7-4.1); Glucose 191 mg/dL (80-110); HEMOLYSIS < 15 (0-50); Lactate (Lactic Acid) 2.6 mmol/L (0.7-2.1); Potassium 3.6 mmol/L (3.4-5.1); Sodium 135 mmol/L (137-145)
[2024-03-08] MEDS: SODIUM CHLORIDE 0.9% 1,000 ML 1000 ML IV ×2 (15:56→16:32)
[2024-03-08] MEDS: cefTRIAXone 1,000 MG in SODIUM CHLORIDE 0.9% 100 ML 200 MG IV (16:24)
[2024-03-08 17:08] LABS: Reflexed Lactate in 2 Hours Y
[2024-03-08 17:13] LABS: Procalcitonin 0.116 ng/mL (<0.5)
== END 2024-03-08 18:51 | disposition home or self-care (01) ==
PROVIDERS: Emergency Provider Emergency Medicine; Family Provider Internal Medicine; PCP Family Medicine
DX: N39.0 Urinary tract infection, site not specified (principal); E11.9 Type 2 diabetes mellitus without complications
CPT/HCPCS: 36415; 80053; 81001; 81003; 82962; 83605; 84145; 85025; 87040; 87077; 87086; 87186; 96361; 96365; 99284; J0696

== ENCOUNTER → 2024-04-10 11:57 | Outpatient (CLI) | payer MEDICARE, OTHER, SELFPAY ==
[2024-04-10 13:26] LABS: Appearance Urine UA CLEAR; Bilirubin Urine UA NEGATIVE (NEGATIVE); Color Urine UA YELLOW; Glucose Urine UA 3+ g/dL (Negative); Ketones Urine UA NEGATIVE (NEGATIVE); Leukocyte Esterase Urine UA 1+ (NEGATIVE); Nitrite Urine UA NEGATIVE (Negative); Occult Blood Urine UA TRACE-INTACT (Negative); Protein Urine UA NEGATIVE (Negative); Urobilinogen Urine UA 0.2 E.U./dL (0.2)
[2024-04-10 13:36] LABS: Bacteria Urine Occasional (0-1); Culture Indicated Urine Specimen Cultured; RBC Urine 1-5/HPF (0-5/HPF); Squamous Epithelial Cell Urine 0-1 /HPF (0-5/HPF); Urine Volume 10mL (spun); WBC Urine 30-100/HPF (0-5/HPF)
== END ==
PROVIDERS: Family Provider Internal Medicine; PCP Family Medicine; Referring Provider Family Medicine; Visit Provider Family Medicine
DX: R30.0 Dysuria (principal); N39.0 Urinary tract infection, site not specified
CPT/HCPCS: 81001; 87086

== ENCOUNTER → 2024-04-13 09:34 | Outpatient (CLI) | payer MEDICARE, OTHER, SELFPAY ==
[2024-04-13 10:44] LABS: Add Manual Diff / Slide Review NO; Basophils Absolute Auto 0 /uL (0-100); Basophils Percent Auto 0.5 % (0-2); Eosinophils Absolute Auto 100 /uL (0-450); Eosinophils Percent Auto 1.7 % (2-4); Hematocrit 45.1 % (41-53); Hemoglobin 15.7 g/dL (13.5-17.5); Lymphocytes Absolute Auto 2100 /uL (1100-4500); Lymphocytes Percent Auto 27.2 % (25-40); Mean Corpuscular HGB Conc 34.9 % (30-36); Mean Corpuscular Hemoglobin 30.2 PG (26-34); Mean Corpuscular Volume 86.5 fL (80-100); Monocytes Absolute Auto 600 /uL (0-900); Monocytes Percent Auto 8.5 % (3-14); Neutrophils Absolute Auto 4700 /uL (1500-7000); Neutrophils Percent Auto 62.1 % (50-75); Platelet Count 267 X10^3/uL (150-400); Red Blood Cell Count 5.22 X10^6/uL (4.5-5.9); Red Cell Distribution Width 13.8 % (11.6-14.8); White Blood Cell Count 7.6 X10^3/uL (4.5-11.0)
[2024-04-13 10:52] LABS: Alanine Aminotransferase 22 IU/L (<50); Albumin 4.6 g/dL (3.5-5.0); Albumin Globulin Ratio 1.6 (1.0-2.8); Alkaline Phosphatase 88 U/L (38-126); Aspartate Aminotransferase 19 IU/L (17-59); BUN Creatinine Ratio 20.2 (6-22); Bilirubin Total 0.9 mg/dL (0.2-1.3); Blood Urea Nitrogen 22 mg/dL (9-20); Calcium 9.7 mg/dL (8.4-10.2); Carbon Dioxide 27 mmol/L (22-32); Chloride 102 mmol/L (98-107); Estimated Glomerular Filt Rate > 60 mL/min (>60); Globulin 2.8 g/dL (1.7-4.1); Glucose 175 mg/dL (80-110); HEMOLYSIS < 15 (0-50); Potassium 4.5 mmol/L (3.4-5.1); Sodium 137 mmol/L (137-145); Total Protein 7.4 g/dL (6.3-8.2)
== END ==
PROVIDERS: Family Provider Internal Medicine; PCP Family Medicine; Referring Provider Family Medicine; Visit Provider Family Medicine
DX: E11.69 Type 2 diabetes mellitus with other specified complication (principal); E78.2 Mixed hyperlipidemia; I10 Essential (primary) hypertension; E11.9 Type 2 diabetes mellitus without complications; N39.0 Urinary tract infection, site not specified; K63.5 Polyp of colon
CPT/HCPCS: 36415; 80053; 83036; 85025

== ENCOUNTER → 2024-04-30 15:30 | Outpatient (CLI) | payer MEDICARE, OTHER, SELFPAY ==
[2024-04-30 17:15] LABS: Appearance Urine UA CLEAR; Bilirubin Urine UA NEGATIVE (NEGATIVE); Color Urine UA YELLOW; Glucose Urine UA TRACE g/dL (Negative); Ketones Urine UA NEGATIVE (NEGATIVE); Leukocyte Esterase Urine UA TRACE (NEGATIVE); Nitrite Urine UA NEGATIVE (Negative); Occult Blood Urine UA NEGATIVE (Negative); Protein Urine UA NEGATIVE (Negative); Specific Gravity Urine UA 1.015 (1.000-1.035); Urobilinogen Urine UA 0.2 E.U./dL (0.2); pH Urine UA 5.5 (4.5-8.0)
[2024-04-30 17:23] LABS: Bacteria Urine Occasional (0-1); Culture Indicated Urine Cult Not Indicated; RBC Urine None Seen (0-5/HPF); Squamous Epithelial Cell Urine 0-1 /HPF (0-5/HPF); Urine Volume 10mL (spun); WBC Urine 1-5/HPF (0-5/HPF)
== END ==
PROVIDERS: Family Provider Internal Medicine; PCP Family Medicine; Referring Provider Family Medicine; Visit Provider Family Medicine
DX: R39.15 Urgency of urination (principal); N39.0 Urinary tract infection, site not specified
CPT/HCPCS: 81001

== ENCOUNTER 2024-05-17 18:28 | Emergency (ER) | payer MEDICARE, OTHER, SELFPAY ==
[2024-05-17 18:37] VITALS: BP 142/74; PULSE 89; RESP 16; TEMP 37; O2SAT 98; BMI 31.1
[2024-05-17 19:12] LABS: Bacteria Urine Occasional (0-1); Culture Indicated Urine Cult Not Indicated; RBC Urine None Seen (0-5/HPF); Squamous Epithelial Cell Urine None Seen (0-5/HPF); Urine Volume 10mL (spun); WBC Urine 0-1/HPF (0-5/HPF)
--- NOTE | 2024-05-17 19:35 | PC.NURSE ---
Pt states that he changed from trulicity to ozempic about 10 days ago.
--- NOTE | 2024-05-17 19:58 | ED_ITS ---
HPI - General Adult General Chief complaint: Urogenital-Male Stated complaint: Urinary problem, DM Time Seen by Provider: 05/17/24 18:50 Source: patient Mode of arrival: Ambulatory History of Present Illness HPI narrative: Patient is a 69-year-old male. Has had a history of urinary tract infections. His last infection was earlier this year after he was started on a new diabetes medication. Approximately 10 days ago he was switched to Ozempic. He states that over the past couple days he has quite a bit of urinary frequency, urgency, dysuria. No fevers. No vomiting. He states he does feel like he empties his bladder. No change in bowel habits. He understands that potentially the diabetes medication could be the cause of his urinary symptoms but given his history of infections he was concerned about those today. Related Data Home Medications Medication Instructions Recorded Confirmed aspirin 81 mg tablet,delayed 81 mg PO QDAY ##0 05/12/16 04/30/24 release diltiazem HCl 180 mg capsule,24 180 mg PO DAILY 02/09/24 04/30/24 hr,extended release hydrochlorothiazide 25 mg tablet 25 mg PO DAILY 02/09/24 04/30/24 metformin 500 mg tablet 1,000 mg PO BID 02/09/24 04/30/24 pantoprazole 20 mg tablet,delayed 20 mg PO DAILY 02/09/24 04/30/24 release Previous Rx's Medication Instructions Recorded dulaglutide 4.5 mg/0.5 mL 4.5 mg (0.5 mL) SUBCUT QWEEK #2 mL 02/09/24 subcutaneous pen injector (Trulicity) atorvastatin 40 mg tablet (Lipitor) 40 mg PO HS #90 tabs 02/22/24 blood sugar diagnostic (FreeStyle #10 ea 03/26/24 Lite Strips) lancets 28 gauge (FreeStyle #100 ea 03/26/24 Lancets) sitagliptin phosphate 50 mg tablet 50 mg PO DAILY #30 tabs 03/26/24 (Januvia) losartan 100 mg tablet 100 mg PO DAILY #90 tabs 04/16/24 semaglutide 1 mg/dose (4 mg/3 mL) 1 mg (0.75 mL) SUBCUT QWEEK #3 mL 04/30/24 subcutaneous pen injector (Ozempic) cephalexin 500 mg capsule 500 mg PO BID 5 days #10 caps 05/17/24 phenazopyridine 100 mg tablet 100 mg PO TID PRN pain 6 doses #6 05/17/24 (Pyridium) tabs Allergies Allergy/AdvReac Type Severity Reaction Status Date / Time empagliflozin AdvReac Unknown frequent Verified 04/30/24 14:45 [From Jardiance] urination house dust AdvReac Unknown Verified 04/30/24 14:45 pollen extracts AdvReac Unknown Verified 04/30/24 14:45 tramadol AdvReac Unknown rectal Verified 04/30/24 14:45 bleeding ibuprofen AdvReac Verified 05/17/24 18:42 Review of Systems Review of Systems Narrative: See HPI Patient History Medical History SVT (supraventricular tachycardia) Hyperlipidemia Hypertension Diabetes Social History marital status: lives independently: Yes Smoking Status: Never smoker Smoking Status: Never smoker alcohol intake frequency: other Exam Initial Vital Signs Initial Vital Signs: Vital Signs Temperature 98.6 F 05/17/24 18:37 Pulse Rate 89 05/17/24 18:37 Respiratory Rate 16 05/17/24 18:37 Blood Pressure 142/74 H 05/17/24 18:37 Pulse Oximetry 98 05/17/24 18:37 Oxygen Delivery Method Room Air 05/17/24 18:37 HENMT Head: normal to inspection and normocephalic Resp Effort & Inspection: normal respiratory effort Cardio Rate: regular rate GI Inspection: non-distended Skin General: no rashes or lesions noted Neuro General: patient alert, patient awake and moves all extremities Extrem General: capillary refill normal Course Orders Ordered: ED Orders 05/17/24 18:42 Urine Microscopic Stat 05/17/24 19:32 Urine Culture Stat Discontinued Medications Cephalexin HCl (Cephalexin 250 Mg Capsule) 500 mg PO NOW ONE Stop: 05/17/24 19:59 Last Admin: 05/17/24 20:04 Dose: 500 mg Documented By: LISSA Phenazopyridine HCl (Phenazopyridine 100 Mg Tablet) 100 mg PO NOW ONE Stop: 05/17/24 19:59 Last Admin: 05/17/24 20:04 Dose: 100 mg Documented By: LISSA Vital Signs Vital signs: Vital Signs - 8 hr 05/17/24 18:37 05/17/24 20:17 Temperature 98.6 F Pulse Rate 89 89 Respiratory Rate 16 20 Blood Pressure 142/74 H 143/77 H Pulse Oximetry 98 96 Oxygen Delivery Method Room Air Room Air Medical Decision Making Medical Records Medical records reviewed: Yes I reviewed the patient's medical records. Lab Data Lab results reviewed: Yes I reviewed the patient's lab results. Labs: Lab Results 05/17/24 Range/Units 18:42 Urine RBC None seen (0-5/HPF) Urine WBC 0-1/hpf (0-5/HPF) Ur Squamous Epith Cells None seen (0-5/HPF) Urine Bacteria Occasional (0-1) (None) Ur Culture Indicated? Cult not indicated Vol Urine Centrifuged 10ml (spun) Urine Dip Bedside Urine Glucose 100 mg/dl Bedside Urine Bilirubin - Negative Bedside Urine Ketone +/- 5 Urine Specific [place] 1.015 Bedside Urine Occult Blood - Negative Bedside Urine pH 6.0 Bedside Urine Protein - Negative Bedside Urine Urobilinogen - Negative Bedside Urine Nitrite - Negative Bedside Urine Leukocytes - Negative Esterase Point of care testing: Urine Dip Bedside Urine Glucose 100 mg/dl Bedside Urine Bilirubin - Negative Bedside Urine Ketone +/- 5 Urine Specific [place] 1.015 Bedside Urine Occult Blood - Negative Bedside Urine pH 6.0 Bedside Urine Protein - Negative Bedside Urine Urobilinogen - Negative Bedside Urine Nitrite - Negative Bedside Urine Leukocytes - Negative Esterase MDM Narrative Medical decision making narrative: Patient was nontoxic appearing. His postvoid residual bladder scan is negligible. His urinalysis today is not particularly consistent with a urinary tract infection. He does not have leukocytes, bacteria, white blood cells although his symptoms are consistent with a UTI. Review of his medical record shows that he has had infections in the past that have grown pansensitive bacteria. He was afebrile. Low suspicion for pyelonephritis. Had a discussion with him regarding options to include placing him on Pyridium and waiting for the urine culture to result versus starting on antibiotics. After this discussion the patient stated that he would like to start on antibiotics. He understands the risks of doing this to include diarrhea and allergic reactions. He understands that there was a culture pending at the time of his discharge we will contact him if we need to change antibiotics based on this. He was given return precautions. He expressed understanding and agreement. Discharge Plan Departure Patient Disposition: Home Clinical Impression: Dysuria Instructions: DI for Dysuria -- Adult Activity Restrictions/Additional Instructions: Continue to take all of your medications as directed. There was a urine culture pending at the time of discharge and we will contact you if we need to change any antibiotics based on this. I do recommend that you talk with your primary doctor next week before increasing your dose of the Ozempic. Return to the emergency department for new symptoms. Prescriptions: New phenazopyridine [Pyridium] 100 mg tablet 100 mg PO TID PRN (Reason: pain) Qty: 6 0RF cephalexin 500 mg capsule 500 mg PO BID 5 Days Qty: 10 0RF No Action aspirin 81 MG tablet,delayed release (DR/EC) 81 mg PO QDAY Qty: 0 atorvastatin [Lipitor] 40 mg tablet 40 mg PO HS Qty: 90 0RF (DME) lancets [FreeStyle Lancets] 28 gauge misc See Rx Instructions .ROUTE DAILY Qty: 100 3RF Rx Instructions: As directed (DME) FreeStyle Lite Strips Strip See Rx Instructions .ROUTE DAILY Qty: 10 3RF Rx Instructions: As directed Januvia 50 mg tablet 50 mg PO DAILY Qty: 30 3RF losartan 100 mg tablet 100 mg PO DAILY Qty: 90 3RF Ozempic 1 mg/dose (4 mg/3 mL) pen injector 1 mg SUBCUT QWEEK Qty: 3 0RF diltiazem HCl 180 mg capsule,extended release 24 hr 180 mg PO DAILY metformin 500 mg tablet 1,000 mg PO BID hydrochlorothiazide 25 mg tablet 25 mg PO DAILY pantoprazole 20 mg tablet,delayed release (DR/EC) 20 mg PO DAILY Trulicity 4.5 mg/0.5 mL pen injector 4.5 mg SUBCUT QWEEK Qty: 2 3RF Referrals: Randolph Clayton MD [Primary Care Provider] - Stand Alone Forms: Patient Portal/API/Survey
[2024-05-17] MEDS: cephALEXin 250 MG CAPSULE 500 MG PO (20:04)
[2024-05-17] MEDS: PHENAZOPYRIDINE 100 MG TABLET PO (20:04)
[2024-05-17 20:17] VITALS: BP 143/77; PULSE 89; RESP 20; O2SAT 96
== END 2024-05-17 20:19 | disposition home or self-care (01) ==
PROVIDERS: Emergency Provider Emergency Medicine; Family Provider Internal Medicine; PCP Family Medicine
DX: R30.0 Dysuria (principal)
CPT/HCPCS: 51798; 81003; 81015; 87086; 99283

== ENCOUNTER → 2024-07-17 07:34 | Outpatient (CLI) | payer MEDICARE, OTHER, SELFPAY ==
[2024-07-17 08:56] LABS: Alanine Aminotransferase 40 IU/L (<50); Albumin 4.6 g/dL (3.5-5.0); Albumin Globulin Ratio 1.7 (1.0-2.8); Alkaline Phosphatase 72 U/L (38-126); Aspartate Aminotransferase 28 IU/L (17-59); BUN Creatinine Ratio 16.5 (6-22); Bilirubin Total 0.9 mg/dL (0.2-1.3); Blood Urea Nitrogen 18 mg/dL (9-20); Calcium 9.2 mg/dL (8.4-10.2); Carbon Dioxide 21 mmol/L (22-32); Chloride 107 mmol/L (98-107); Estimated Glomerular Filt Rate > 60 mL/min (>60); Globulin 2.7 g/dL (1.7-4.1); Glucose 167 mg/dL (80-110); HEMOLYSIS < 15 (0-50); Potassium 3.8 mmol/L (3.4-5.1); Sodium 140 mmol/L (137-145); Total Protein 7.3 g/dL (6.3-8.2)
[2024-07-17 09:04] LABS: Hemoglobin A1C% w Est Avg Glu 6.7 % (4.0-6.0)
== END ==
LOC: LAB 07:35
PROVIDERS: Family Provider Internal Medicine; PCP Family Medicine; Referring Provider Family Medicine; Visit Provider Family Medicine
DX: E11.9 Type 2 diabetes mellitus without complications (principal); I10 Essential (primary) hypertension; E78.5 Hyperlipidemia, unspecified
CPT/HCPCS: 36415; 80053; 83036

== ENCOUNTER → 2024-10-02 09:10 | Outpatient (CLI) | payer MEDICARE, OTHER, SELFPAY ==
[2024-10-02 10:52] LABS: Hemoglobin A1C% w Est Avg Glu 6.4 % (4.0-6.0)
[2024-10-02 11:18] LABS: Alanine Aminotransferase 41 IU/L (<50); Albumin 4.7 g/dL (3.5-5.0); Albumin Globulin Ratio 1.6 (1.0-2.8); Alkaline Phosphatase 79 U/L (38-126); Aspartate Aminotransferase 29 IU/L (17-59); BUN Creatinine Ratio 17.6 (6-22); Bilirubin Total 0.9 mg/dL (0.2-1.3); Blood Urea Nitrogen 18 mg/dL (9-20); Calcium 9.5 mg/dL (8.4-10.2); Carbon Dioxide 26 mmol/L (22-32); Chloride 101 mmol/L (98-107); Estimated Glomerular Filt Rate > 60 mL/min (>60); Glucose 165 mg/dL (70-99); HEMOLYSIS < 15 (0-50); Potassium 4.3 mmol/L (3.4-5.1); Sodium 138 mmol/L (137-145); Total Protein 7.7 g/dL (6.3-8.2)
[2024-10-02 11:59] LABS: Creatinine Urine Random 205.45 mg/dL
[2024-10-02 12:04] LABS: Microalbumin Urine Random 1.3 mg/dL (0-1.6)
== END ==
PROVIDERS: Family Provider Internal Medicine; PCP Family Medicine; Referring Provider Family Medicine; Visit Provider Family Medicine
DX: E11.9 Type 2 diabetes mellitus without complications (principal); E78.5 Hyperlipidemia, unspecified; I10 Essential (primary) hypertension
CPT/HCPCS: 36415; 80053; 82043; 82570; 83036

== ENCOUNTER → 2024-12-21 07:20 | Outpatient (CLI) | payer MEDICARE, OTHER, SELFPAY ==
[2024-12-21 08:13] LABS: Hemoglobin A1C% w Est Avg Glu 6.6 % (4.0-6.0)
[2024-12-21 09:00] LABS: Alanine Aminotransferase 34 IU/L (<50); Albumin 4.3 g/dL (3.5-5.0); Albumin Globulin Ratio 1.5 (1.0-2.8); Alkaline Phosphatase 76 U/L (38-126); Blood Urea Nitrogen 16 mg/dL (9-20); Calcium 9.4 mg/dL (8.4-10.2); Carbon Dioxide 24 mmol/L (22-32); Chloride 103 mmol/L (98-107); Estimated Glomerular Filt Rate > 60 mL/min (>60); Globulin 2.8 g/dL (1.7-4.1); Glucose 171 mg/dL (70-99); HEMOLYSIS < 15 (0-50); Potassium 4.0 mmol/L (3.4-5.1); Sodium 137 mmol/L (137-145); Total Protein 7.1 g/dL (6.3-8.2)
== END ==
PROVIDERS: Family Provider Internal Medicine; PCP Family Medicine; Referring Provider Family Medicine; Visit Provider Family Medicine
DX: E11.9 Type 2 diabetes mellitus without complications (principal); M72.0 Palmar fascial fibromatosis [Dupuytren]; E78.5 Hyperlipidemia, unspecified; I10 Essential (primary) hypertension
CPT/HCPCS: 36415; 80053; 83036

== ENCOUNTER → 2025-04-02 08:20 | Outpatient (CLI) | payer MEDICARE, OTHER, SELFPAY ==
[2025-04-02 09:06] LABS: Add Manual Diff / Slide Review NO; Hematocrit 42.7 % (41-53); Hemoglobin 15.5 g/dL (13.5-17.5); Lymphocytes Absolute Auto 2000 /uL (1100-4500); Mean Corpuscular HGB Conc 36.3 % (30-36); Mean Corpuscular Hemoglobin 30.8 PG (26-34); Mean Corpuscular Volume 84.9 fL (80-100); Platelet Count 256 X10^3/uL (150-400)
[2025-04-02 09:24] LABS: Hemoglobin A1C% w Est Avg Glu 7.5 % (4.0-6.0)
[2025-04-02 09:31] LABS: Alanine Aminotransferase 35 IU/L (<50); Albumin 4.5 g/dL (3.5-5.0); Albumin Globulin Ratio 1.6 (1.0-2.8); Alkaline Phosphatase 79 U/L (38-126); Blood Urea Nitrogen 19 mg/dL (9-20); Calcium 9.4 mg/dL (8.4-10.2); Carbon Dioxide 21 mmol/L (22-32); Chloride 101 mmol/L (98-107); Cholesterol 122 mg/dL (140-199); Estimated Glomerular Filt Rate > 60 mL/min (>60); Globulin 2.8 g/dL (1.7-4.1); Glucose 204 mg/dL (70-99); HDL Cholesterol 40 mg/dL (40-60); HEMOLYSIS < 15 (0-50); Potassium 3.9 mmol/L (3.4-5.1); Sodium 136 mmol/L (137-145); Total Protein 7.3 g/dL (6.3-8.2); Triglycerides 244 mg/dL (35-150)
[2025-04-02 09:37] LABS: Anisocytosis 1+
[2025-04-02 10:02] LABS: TSH w/ Reflex to FT4 2.87 uIU/mL (0.47-4.68)
== END ==
PROVIDERS: PCP Family Medicine; Referring Provider Family Medicine; Visit Provider Family Medicine
DX: E11.69 Type 2 diabetes mellitus with other specified complication (principal); Z12.5 Encounter for screening for malignant neoplasm of prostate; E78.2 Mixed hyperlipidemia; I10 Essential (primary) hypertension; M72.0 Palmar fascial fibromatosis [Dupuytren]
CPT/HCPCS: 36415; 80053; 80061; 83036; 84443; 85025; G0103

== ENCOUNTER → 2025-04-16 14:00 | Outpatient (CLI) | payer MEDICARE, OTHER, SELFPAY ==
--- NOTE | 2025-04-16 14:02 | DI.RAD.S_ITS ---
PROCEDURE: XR CHEST 2V INDICATIONS: chronic cough TECHNIQUE: 2 views of the chest were acquired. COMPARISON: [facility], CR, XR CHEST 1V, 10/24/2021, 9:33. FINDINGS: Surgical changes and devices: None. Lungs and pleura: Lungs are clear. No pleural effusions or pneumothorax. Mediastinum: Mediastinal contours are normal. Heart size is normal. Bones and chest wall: No suspicious bony abnormalities. Soft tissues appear unremarkable. IMPRESSION: No acute cardiopulmonary abnormalities or focal consolidation. Dictated by: Jewel Sheriff M.D. on 04/16/2025 at 18:02 Approved by: Jewel Sheriff M.D. on 04/16/2025 at 18:02
== END ==
PROVIDERS: PCP Family Medicine; Referring Provider Family Medicine; Visit Provider Family Medicine
DX: R05.3 Chronic cough (principal)
CPT/HCPCS: 71046